=== PATIENT | female | born 1930 | race Caucasian/White ===

== ENCOUNTER → 2016-12-03 | Day surgery (SDC) | payer MEDICARE ==
[~2016-12-03] VITALS: Ht 165.1 cm; Wt 59.0 kg
[~2016-12-03] MED LIST: ASPI81CH CHEW; CALCTAB70 PO; CYCLOPENTOLATE HCL 1% OPHT SOLN 2 ML BTL ONE; FLURBIPROFEN 0.03% OPHT SOLN 2.5 ML BTL ONE; HYALURONIDASE/LIDOCAINE/EPINEPHRINE/BUPIVACAINE 6 ML SYR ONE; LIDOCAINE HCL 1% 30 ML VIAL ONE; MEVA40TA PO; PHENYLEPHRINE HCL 10% OPTH SOLN 5 ML BTL ONE; PROPARACAINE HCL 0.5% OPHT SOLN 15 ML BTL ONE; PROPOFOL 200 MG/20 ML AMP ONE; SODIUM CHLORID 0.9% 500 ML INJ 500 ML ONE; TOBRAMYCIN/DEXAMETHASONE OPTH OINT 3.5 GM TUBE ONE; TROPICAMIDE 1% OPHT SOLN 15 ML BTL ONE; VITA500C13
[2016-12-03 08:55] VITALS: BP 173/92; PULSE 65; RESP 16; TEMP 97.7; O2SAT 96
[2016-12-03 09:00] VITALS: PULSE 65
[2016-12-03 09:39] VITALS: PULSE 67
[2016-12-03 10:18] VITALS: TEMP 97.8
[2016-12-03 10:53] VITALS: BP 150/72; PULSE 65; RESP 14; O2SAT 100
--- NOTE | 2016-12-06 07:42 | MP ---
cc: CHANDRAKANT BETANCOURT M.D. [facility] #[id number] DATE OF SURGERY: 12/03/2016 PREOPERATIVE DIAGNOSIS: Visually significant cataract, right eye. POSTOPERATIVE DIAGNOSIS: Visually significant cataract, right eye. OPERATION: Phacoemulsification with posterior chamber lens implantation, right eye. SURGEON: Chandrakant Betancourt MD ANESTHESIA: Retrobulbar with MAC. COMPLICATIONS: None. PROCEDURE: After informed consent was obtained, the patient was brought into the operative suite and placed on appropriate monitors by the Anesthesia Service. The patient had received a prior retrobulbar injection of local anesthetic by the Anesthesia Service in the holding area. The patient's operative eye was then prepped and draped in the usual sterile fashion. A wire lid speculum was placed. A paracentesis incision was made in the peripheral cornea with a 1 mm jeannette keratome. The anterior chamber was filled with viscoelastic. The anterior chamber was then entered through a stepped, clear corneal incision using a sharp 3 mm jeannette keratome. A circular tear capsulorrhexis was then made with a bent needle cystitome. Following hydrodissection of the lens nucleus with balanced saline, phacoemulsification of the nucleus was performed using a modified chopping technique. The remaining cortex was removed with irrigation/aspiration. The prior two procedures were both performed using the handpieces of the [employer] phaco unit. The capsular bag was then filled with viscoelastic. The intraocular lens was then injected into the capsular bag and positioned. The type of intraocular lens and its power can be found elsewhere in this chart. The remaining viscoelastic was then removed from the anterior chamber with the IA handpiece. The anterior chamber was reformed with balanced saline. The wound was then closed securely with stromal hydration. It was found to be watertight to an intraocular pressure of at least 30 mmHg by palpation. A small amount of balanced salt solution was then removed through the paracentesis site and the intraocular pressure at the end of the case was approximately 20 by palpation. All drapes were then removed. TobraDex ointment was then placed in the eye, which was closed beneath a semi-pressure patch dressing. The patient tolerated this procedure well and left the operating room awake and alert. The patient is to follow-up in my office in the morning. ADDENDUM: Due to the patient's poorly dilating pupil, a Malyugin ring was used to promote and maintain pupillary mydriasis during phacoemulsification and lens implantation. MD RENUKA Wagner/TINA /10:28 AM /6:36 AM
== END | disposition home or self-care (01) ==
LOC: PHSDC 07:06
PROVIDERS: ATTEND Optometrist Occupational Vision
DX: H25.11 Age-related nuclear cataract, right eye (principal)
CPT/HCPCS: 00142; 66984; J7040; V2632

== ENCOUNTER 2017-05-12 16:58 | Emergency (ER) | payer MEDICARE ==
[~2017-05-12] VITALS: Ht 165.1 cm; Wt 63.0 kg
[~2017-05-12 16:58] MED LIST changes: -CYCLOPENTOLATE HCL 1% OPHT SOLN 2 ML BTL ONE; -FLURBIPROFEN 0.03% OPHT SOLN 2.5 ML BTL ONE; -HYALURONIDASE/LIDOCAINE/EPINEPHRINE/BUPIVACAINE 6 ML SYR ONE; -LIDOCAINE HCL 1% 30 ML VIAL ONE; -PHENYLEPHRINE HCL 10% OPTH SOLN 5 ML BTL ONE; -PROPARACAINE HCL 0.5% OPHT SOLN 15 ML BTL ONE; -PROPOFOL 200 MG/20 ML AMP ONE; -SODIUM CHLORID 0.9% 500 ML INJ 500 ML ONE; -TOBRAMYCIN/DEXAMETHASONE OPTH OINT 3.5 GM TUBE ONE; -TROPICAMIDE 1% OPHT SOLN 15 ML BTL ONE
[2017-05-12 17:06] VITALS: BP 158/77; PULSE 82; RESP 16; TEMP 98; O2SAT 94
--- NOTE | 2017-05-12 17:52 | PD ---
HPI Chief Complaint: Fall Time Seen by Provider: 17:38 Travel History International Travel<30 days: No Contact w/Intl Traveler<30days: No Traveled to known affect area: No History of Present Illness HPI 86-year-old female complains of headache, syncope. Patient states that she was in the kitchen this afternoon and passed out. Patient states that she fell backward hitting the back of her head. Patient was not sure of how long she was out. Patient complained of headache in the back of her head. Patient denies any visual change. Patient denies any neck pain. Patient denies any chest pain or shortness of breath. Patient denies abdominal pain. Patient denies any focal weakness or numbness of extremity. Patient denies any extremity injury. Patient denies any illicit drug or alcohol abuse. Patient on aspirin daily and medication for hyperlipidemia. Patient denies any history of cardiac arrhythmia, TIA or CVA. PFSH Past Medical History Cancer: No Cardiovascular Problems: No High Cholesterol: Yes Diabetes: No Diminished Hearing: No Endocrine: No Gastrointestinal Disorders: Yes (DIVERTICULOSIS, DYSPHAGIA) Hepatitis: No Hypertension: Yes Musculoskeletal: Yes (ARTHRITIS, KNEE PAIN) Neurologic: Yes (VERTIGO) Psychiatric: No Respiratory: No Thyroid Disease: No Influenza Vaccination: Yes ?: Not Menopausal: Yes Past Surgical History Abdominal Surgery: Yes (APPENDECTOMY) AICD: No Cardiac Surgery: No Ear Surgery: No Endocrine Surgery: No Eye Surgery: No Genitourinary Surgery: No Gynecologic Surgery: Yes (HYSTERECTOMY) Hysterectomy: Yes (20 years ago) Joint Replacement: No Oral Surgery: No Pacemaker: No Thoracic Surgery: No Other Surgery: Yes Social History Alcohol Use: No Tobacco Use: No Substance Use: No Allergies-Medications (Allergen,Severity, Reaction): Coded Allergies: No Known Allergies (Verified , 05/12/17) Reported Meds & Prescriptions Reported Meds & Active Scripts Active Reported Aspirin 81 Mg Chew 81 Mg CHEW DAILY Review of Systems General / Constitutional: No: Fever Eyes: No: Visual changes HENT: Positive: Headaches Cardiovascular: No: Chest Pain or Discomfort Respiratory: No: Shortness of Breath Gastrointestinal: No: Abdominal Pain Genitourinary: No: Dysuria Musculoskeletal: No: Pain Skin: No Rash Neurologic: Positive: Syncope, No: Weakness Psychiatric: No: Depression Endocrine: No: Polydipsia Hematologic/Lymphatic: No: Easy Bruising Physical Exam Narrative GENERAL: Well-nourished, well-developed patient. SKIN: Focused skin assessment warm/dry. HEAD: Normocephalic. Soft tissue swelling tenderness right occipital area of the scalp. EYES: No scleral icterus. No injection or drainage. Pupils pinpoint and reactive. NECK: Supple, trachea midline. No JVD or lymphadenopathy. CARDIOVASCULAR: Regular rate and rhythm without murmurs, gallops, or rubs. RESPIRATORY: Breath sounds equal bilaterally. No accessory muscle use. GASTROINTESTINAL: Abdomen soft, non-tender, nondistended. MUSCULOSKELETAL: No cyanosis, or edema. BACK: Nontender without obvious deformity. No CVA tenderness. Neurologic exam: Patient's awake and alert oriented 3. Patient moves all extremity well. No obvious focal neurological deficit. Data Data Last Documented VS Vital Signs Date Time Temp Pulse Resp B/P Pulse Ox O2 Delivery O2 Flow Rate FiO2 05/12/17 19:00 97.9 66 18 172/80 96 Room Air Orders Electrocardiogram (05/12/17 17:46) Complete Blood Count With Diff (05/12/17 17:46) Comprehensive Metabolic Panel (05/12/17 17:46) Prothrombin Time / Inr (Pt) (05/12/17 17:46) Act Partial Throm Time (Ptt) (05/12/17 17:46) Urinalysis - C+S If Indicated (05/12/17 17:46) Ct Brain W/O Iv Contrast(Rout) (05/12/17 17:46) Iv Access Insert/Monitor (05/12/17 17:46) Ecg Monitoring (05/12/17 17:46) Oximetry (05/12/17 17:46) Labs Laboratory Tests Test 05/12/17 17:51 White Blood Count 9.0 TH/MM3 Red Blood Count 4.39 MIL/MM3 Hemoglobin 13.6 GM/DL Hematocrit 40.9 % Mean Corpuscular Volume 93.2 FL Mean Corpuscular Hemoglobin 31.0 PG Mean Corpuscular Hemoglobin 33.3 % Concent Red Cell Distribution Width 13.7 % Platelet Count 252 TH/MM3 Mean Platelet Volume 7.6 FL Neutrophils (%) (Auto) 76.9 % Lymphocytes (%) (Auto) 15.0 % Monocytes (%) (Auto) 7.1 % Eosinophils (%) (Auto) 0.6 % Basophils (%) (Auto) 0.4 % Neutrophils # (Auto) 7.0 TH/MM3 Lymphocytes # (Auto) 1.3 TH/MM3 Monocytes # (Auto) 0.6 TH/MM3 Eosinophils # (Auto) 0.1 TH/MM3 Basophils # (Auto) 0.0 TH/MM3 CBC Comment DIFF FINAL Differential Comment Prothrombin Time 10.4 SEC Prothromb Time International 0.9 RATIO Ratio Activated Partial 26.6 SEC Thromboplast Time Sodium Level 138 MEQ/L Potassium Level 4.1 MEQ/L Chloride Level 104 MEQ/L Carbon Dioxide Level 29.1 MEQ/L Anion Gap 5 MEQ/L Blood Urea Nitrogen 19 MG/DL Creatinine 0.81 MG/DL Estimat Glomerular Filtration 67 ML/MIN Rate Random Glucose 106 MG/DL Calcium Level 8.6 MG/DL Total Bilirubin 0.4 MG/DL Aspartate Amino Transf 22 U/L (AST/SGOT) Alanine Aminotransferase 20 U/L (ALT/SGPT) Alkaline Phosphatase 86 U/L Total Protein 7.5 GM/DL Albumin 3.6 GM/DL MDM Medical Decision Making Medical Screen Exam Complete: Yes Emergency Medical Condition: Yes Interpretation(s) [address] scan of brain shows no acute pathology. CBC CMP within normal limit. Differential Diagnosis Differential diagnosis including syncope, contusion, concussion, skull fracture , intracranial hemorrhage, arrhythmia, electrolyte imbalance, TIA, CVA. Narrative Course 86-year-old female with head injury after a syncopal episode. Diagnosis Primary Impression: Closed head injury Qualified Code: S09.90XA - Closed head injury, initial encounter Patient Instructions: General Instructions Additional Instructions: Tylenol and Advil for pain. Head trauma instructions given. Follow-up with personal physician. Return as needed. Med/Other Pt SpecificInfo: No Change to Meds Disposition: 01 DISCHARGE HOME Condition: Stable Tacos Ragland MD May 12, 2017 17:52
[2017-05-12 17:56] VITALS: O2SAT 94
[2017-05-12 17:56] LABS: BASOPHIL % 0.4 % (0.0-2.0); EOSINOPHIL # 0.1 TH/MM3 (0-0.4); EOSINOPHIL % 0.6 % (0.0-4.0); HEMATOCRIT 40.9 % (35.0-46.0); LYMPHOCYTE # 1.3 TH/MM3 (1.0-4.8); MEAN CELL VOLUME 93.2 FL (80.0-100.0); MEAN CORPUSCULAR HGB CONC 33.3 % (32.0-36.0); MONO % 7.1 % (0.0-8.0); NEUT % 76.9 % (16.0-70.0); PLATELET COUNT 252 TH/MM3 (150-450); RED BLOOD COUNT 4.39 MIL/MM3 (4.00-5.30); RED CELL DISTRIBUTION WIDTH 13.7 % (11.6-17.2)
[2017-05-12 17:59] LABS: HEMO FLAGS DIFF FINAL
[2017-05-12 18:09] LABS: CHLORIDE 104 MEQ/L (98-107); POTASSIUM 4.1 MEQ/L (3.5-5.1); SODIUM (NA) 138 MEQ/L (136-145)
[2017-05-12 18:13] LABS: ANION GAP 5 MEQ/L (5-15); APTT (PATIENT) 26.6 SEC (24.3-30.1); BICARBONATE 29.1 MEQ/L (21.0-32.0); BLOOD UREA NITROGEN 19 MG/DL (7-18); INTERNATIONAL NORMALIZED RATIO 0.9 RATIO; PROTHROMBIN TIME - PATIENT 10.4 SEC (9.8-11.6)
[2017-05-12 18:16] LABS: ALT (GPT) 20 U/L (10-53); AST (GOT) 22 U/L (15-37); GLOMERULAR FILTRATION RATE 67 ML/MIN (>89)
[2017-05-12 18:17] LABS: TOTAL BILIRUBIN ADULT 0.4 MG/DL (0.2-1.0)
[2017-05-12 18:19] LABS: ALKALINE PHOSPHATASE 86 U/L (45-117)
[2017-05-12 19:00] VITALS: BP 172/80; PULSE 66; RESP 18; TEMP 97.9; O2SAT 96
--- NOTE | 2017-05-12 19:17 | RADRPT ---
EXAM DATE/TIME: 05/12/2017 18:25 CORRECTION Corrected on: May 12, 2017; [facility] COMPARISON: CT BRAIN W/O CONTRAST, November 11, 2014, 16:26. INDICATIONS : Trauma, fall. Dizziness. RADIATION DOSE: 61.18 CTDIvol (mGy) MEDICAL HISTORY : Hypertension. Vertigo. SURGICAL HISTORY : None. ENCOUNTER: Initial ACUITY: 1 day PAIN SCALE: 0/10 LOCATION: cranial TECHNIQUE: Multiple contiguous axial images were obtained of the head. Using automated exposure control and adj ustment of the mA and/or kV according to patient size, radiation dose was kept as low as reasonably a chievable to obtain optimal diagnostic quality images. DICOM format image data is available electro nically for review and comparison. FINDINGS: CEREBRUM: The ventricles and cortical sulci are mildly distended. There is mild decreased density in the cereb ral white matter. No evidence of midline shift, mass lesion, hemorrhage or acute infarction. No extr a-axial fluid collections are seen. POSTERIOR FOSSA: The cerebellum and brainstem are intact. The 4th ventricle is midline. The cerebellopontine angle i s unremarkable. EXTRACRANIAL: The visualized portion of the orbits is intact. There is focal soft tissue swelling in the right cintia etal scalp region. SKULL: The calvaria is intact. No evidence of skull fracture. CONCLUSION: 1. No acute intracranial abnormality. 2. Mild age-related atrophy and suspected small vessel ischemic change in the white matter. 3. Right parietal scalp swelling. Chadwick Cool MD on May 12, 2017 at 19:14 Board Certified Radiologist. This report was verified electronically. Chadwick Cool MD on May 12, 2017 at 19:18 Board Certified Radiologist. This report was verified electronically.
[2017-05-12 19:22] LABS: BLOOD, URINE NEG (NEG); GLUCOSE,URINE NEG (NEG); KETONE, URINE NEG (NEG); NITRITE,URINE NEG (NEG); PH, URINE 6.5 (5.0-8.5)
[2017-05-12 19:27] LABS: COMMENT (UR) CULT NOT INDICATED; CULTURE IF INDICATED CULT NOT INDICATED; RBC, URINE 0-2 /hpf (0-3); SQUAMOUS EPITHELIAL CELL URINE 0-5 /hpf (0-5); URINE COLOR YELLOW (YELLW/STRAW); WBC, URINE 0-2 /hpf (0-5)
--- NOTE | 2017-05-13 09:13 | EKG ---
Date Performed: 05/12/2017 Time Performed: 17:54:03 PTAGE: 86 years EKG: Sinus rhythm WITH SINUS ARRHYTHMIA POSSIBLE RIGHT VENTRICULAR CONDUCTION DELAY ST DEVIATION AND MODERATE T-WAVE A BNORMALITY, CONSIDER ANTEROLATERAL ISCHEMIA ABNORMAL ECG NO PREVIOUS TRACING DOCTOR: Ivan Juan Interpretating Date/Time 05/13/2017 09:03:57
== END 2017-05-12 19:56 | disposition home or self-care (01) ==
LOC: PHED 16:58
DX: S09.90XA Unspecified injury of head, initial encounter (principal); R55 Syncope and collapse; I10 Essential (primary) hypertension; E78.5 Hyperlipidemia, unspecified; R94.31 Abnormal electrocardiogram [ECG] [EKG]; Z79.82 Long term (current) use of aspirin; Z87.19 Personal history of other diseases of the digestive system; Z87.39 Personal history of other diseases of the musculoskeletal system and connective tissue; W18.39XA Other fall on same level, initial encounter; Y92.000 Kitchen of unspecified non-institutional (private) residence as the place of occurrence of the external cause
CPT/HCPCS: 70450; 80053; 81001; 85025; 85610; 85730; 93005; 99285

== ENCOUNTER 2017-08-12 10:21 | Observation (INO) | payer MEDICARE ==
[~2017-08-12] VITALS: Ht 165.1 cm; Wt 60.8 kg
[~2017-08-12 10:21] MED LIST changes: +ASPI-516 CHEW; -ASPI81CH CHEW; -CALCTAB70 PO; -MEVA40TA PO; -VITA500C13
[2017-08-12 10:34] VITALS: BP 127/65; PULSE 72; RESP 16; TEMP 98.1; O2SAT 97
[2017-08-12] MEDS ORDERED: SCOP1PAT6 (10:40)
[2017-08-12] MEDS ORDERED: TRIA0.022 TOPICAL (10:40)
[2017-08-12] MEDS ORDERED: LOVA20TA PO (10:40)
--- NOTE | 2017-08-12 11:13 | PD ---
HPI Chief Complaint: Neuro Symptoms/ Deficits Time Seen by Provider: 10:30 Travel History International Travel<30 days: No Contact w/Intl Traveler<30days: No Traveled to known affect area: No History of Present Illness HPI 86yo F presents to the ED with c/o change in mental status, speech for 2 days. States 2 days ago, daughter notice that when she starts speaking, she is unable to find her words and also had some slurred speech. Pt uses a walker but noticed that her gait has been more unsteady for 2 days. Pt fell and hit her head yesterday but did not seek any medical attention. Denies being on anticoagulation. Pt has vertigo and did start a patch recently but took the patch off and is still not back to baseline mental status as per daughter. Denies any fever, cough, chest pain, sob, n/v, abdominal pain, focal weakness or numbness or visual changes. PFSH Past Medical History Cancer: No Cardiovascular Problems: No High Cholesterol: Yes Diabetes: No Diminished Hearing: No Endocrine: No Gastrointestinal Disorders: Yes (DIVERTICULOSIS, DYSPHAGIA) Hepatitis: No Hypertension: Yes Musculoskeletal: Yes (ARTHRITIS, KNEE PAIN) Neurologic: Yes (VERTIGO) Psychiatric: No Respiratory: No Thyroid Disease: No Menopausal: Yes Past Surgical History Abdominal Surgery: Yes (APPENDECTOMY) AICD: No Cardiac Surgery: No Ear Surgery: No Endocrine Surgery: No Eye Surgery: No Genitourinary Surgery: No Gynecologic Surgery: Yes (HYSTERECTOMY) Hysterectomy: Yes (20 years ago) Joint Replacement: No Neurologic Surgery: No Oral Surgery: No Pacemaker: No Thoracic Surgery: No Other Surgery: Yes Social History Alcohol Use: No Tobacco Use: No Substance Use: No Allergies-Medications (Allergen,Severity, Reaction): Coded Allergies: No Known Allergies (Verified Allergy, Unknown, 08/12/17) Reported Meds & Prescriptions Reported Meds & Active Scripts Active Reported Triamcinolone Topical 0.025 % Oint 1 Applic TOPICAL BID Lovastatin 20 Mg Tab 20 Mg PO DAILY Scopolamine 1 Mg/3 Day Patch.td.3 Review of Systems Except as stated in HPI: all other systems reviewed are Neg Physical Exam Narrative GENERAL: 86yo F not in distress. SKIN: Focused skin assessment warm/dry. HEAD: Atraumatic. Normocephalic. EYES: Pupils equal and round at 3mm bilaterally. EOMI. ENT: No nasal bleeding or discharge. Mucous membranes pink and moist. NECK: Trachea midline. No JVD. CARDIOVASCULAR: Regular rate and rhythm. No murmur appreciated. RESPIRATORY: No accessory muscle use. Clear to auscultation. Breath sounds equal bilaterally. GASTROINTESTINAL: Abdomen soft, non-tender, nondistended. MUSCULOSKELETAL: No obvious deformities. No clubbing. No cyanosis. No edema. NEUROLOGICAL: Awake and alert. No obvious cranial nerve deficits. Motor grossly within normal limits. Normal speech. PSYCHIATRIC: Appropriate mood and affect; insight and judgment normal. Data Data Last Documented VS Vital Signs Date Time Temp Pulse Resp B/P (MAP) Pulse Ox O2 Delivery O2 Flow Rate FiO2 08/12/17 11:59 62 111/75 (87) 95 08/12/17 10:34 [address] Brain W/O Iv Contrast(Rout) (08/12/17 ) Complete Blood Count With Diff (08/12/17 10:43) Basic Metabolic Panel (Bmp) (08/12/17 10:43) Prothrombin Time / Inr (Pt) (08/12/17 10:43) Act Partial Throm Time (Ptt) (08/12/17 10:43) Ct Cerv Spine W/O Contrast (08/12/17 ) Urinalysis - C+S If Indicated (08/12/17 10:43) Electrocardiogram (08/12/17 ) Troponin I (08/12/17 10:54) Admit Order (Ed Use Only) (08/12/17 12:54) Labs Laboratory Tests Test 08/12/17 11:06 White Blood Count 6.4 TH/MM3 Red Blood Count 4.66 MIL/MM3 Hemoglobin 14.2 GM/DL Hematocrit 43.7 % Mean Corpuscular Volume 93.9 FL Mean Corpuscular Hemoglobin 30.5 PG Mean Corpuscular Hemoglobin Concent 32.5 % Red Cell Distribution Width 13.3 % Platelet Count 272 TH/MM3 Mean Platelet Volume 7.4 FL Neutrophils (%) (Auto) 59.9 % Lymphocytes (%) (Auto) 28.0 % Monocytes (%) (Auto) 9.1 % Eosinophils (%) (Auto) 2.0 % Basophils (%) (Auto) 1.0 % Neutrophils # (Auto) 3.8 TH/MM3 Lymphocytes # (Auto) 1.8 TH/MM3 Monocytes # (Auto) 0.6 TH/MM3 Eosinophils # (Auto) 0.1 TH/MM3 Basophils # (Auto) 0.1 TH/MM3 CBC Comment DIFF FINAL Differential Comment Prothrombin Time 10.2 SEC Prothromb Time International Ratio 0.9 RATIO Activated Partial Thromboplast Time 27.8 SEC Urine Collection Type CLEAN CATCH Urine Color YELLOW Urine Turbidity CLEAR Urine pH 6.0 Urine Specific [place] 1.010 Urine Protein NEG mg/dL Urine Glucose (UA) NEG mg/dL Urine Ketones NEG mg/dL Urine Occult Blood NEG Urine Nitrite NEG Urine Bilirubin NEG Urine Leukocyte Esterase NEG Urine RBC 0-3 /hpf Urine WBC 0-2 /hpf Urine Squamous Epithelial Cells 0-5 /hpf Microscopic Urinalysis Comment CULT NOT INDICATED Urine Collection Time 11:06 Blood Urea Nitrogen 23 MG/DL Creatinine 0.87 MG/DL Random Glucose 62 MG/DL Calcium Level 9.0 MG/DL Sodium Level 143 MEQ/L Potassium Level 4.1 MEQ/L Chloride Level 106 MEQ/L Carbon Dioxide Level 30.4 MEQ/L Anion Gap 7 MEQ/L Estimat Glomerular Filtration Rate 61 ML/MIN Troponin I LESS THAN 0.02 NG/ML MDM Medical Decision Making Medical Screen Exam Complete: Yes Emergency Medical Condition: Yes Interpretation(s) EKG: NSR 70bpm. Normal axis. TWI V3-V6. Differential Diagnosis TIA vs. dementia vs. delirium vs. UTI vs. medication effects Narrative Course 86yo F with symptoms concerning for TIA. Pt has difficulty speaking words and change in gait for 2 days. Fell yesterday. Labs reviewed, no leukocytosis. Troponin negative. Glucose low at 62 but the blood glucose was 136 then 87 when we checked it. Pt is awake and alert on exam. UA negative. CT brain showed soft tissue swelling. No acute abnormality. CT cspine showed no acute bony fracture. Discussed with Dr. Enamorado and accepted to her service. Diagnosis Primary Impression: TIA (transient ischemic attack) Qualified Codes: G45.9 - Transient cerebral ischemic attack, unspecified Admitting Information Admitting Physician Requests: Saloni Shah DO Aug 12, 2017 11:13
[2017-08-12 11:16] LABS: AUTOMATED NEUTROPHIL # 3.8 TH/MM3 (1.8-7.7); BASOPHIL # 0.1 TH/MM3 (0-0.2); EOSINOPHIL # 0.1 TH/MM3 (0-0.4); HEMATOCRIT 43.7 % (35.0-46.0); HEMO FLAGS DIFF FINAL; LYMPHOCYTE # 1.8 TH/MM3 (1.0-4.8); MEAN CELL VOLUME 93.9 FL (80.0-100.0); MEAN CORPUSCULAR HEMOGLOBIN 30.5 PG (27.0-34.0); MEAN CORPUSCULAR HGB CONC 32.5 % (32.0-36.0); MONO % 9.1 % (0.0-8.0); NEUT % 59.9 % (16.0-70.0); PLATELET COUNT 272 TH/MM3 (150-450); RED BLOOD COUNT 4.66 MIL/MM3 (4.00-5.30); RED CELL DISTRIBUTION WIDTH 13.3 % (11.6-17.2); WHITE BLOOD COUNT 6.4 TH/MM3 (4.0-11.0)
[2017-08-12 11:24] LABS: POTASSIUM 4.1 MEQ/L (3.5-5.1)
--- NOTE | 2017-08-12 11:24 | RADRPT ---
EXAM DATE/TIME: 08/12/2017 11:12 [facility] COMPARISON: CT BRAIN W/O CONTRAST, May 12, 2017, 18:25. INDICATIONS : Trauma. Fell 2 days ago. Dizziness. Memory loss. RADIATION DOSE: 59.78 CTDIvol (mGy) MEDICAL HISTORY : Hypertension. Vertigo. SURGICAL HISTORY : Hysterectomy. Appendectomy. ENCOUNTER: Initial ACUITY: 2 days PAIN SCALE: 0/10 LOCATION: cranial TECHNIQUE: Multiple contiguous axial images were obtained of the head. Using automated exposure control and adj ustment of the mA and/or kV according to patient size, radiation dose was kept as low as reasonably a chievable to obtain optimal diagnostic quality images. DICOM format image data is available electro nically for review and comparison. FINDINGS: CEREBRUM: The ventricles are normal for age. No evidence of midline shift, mass lesion, hemorrhage or acute in farction. No extra-axial fluid collections are seen. POSTERIOR FOSSA: The cerebellum and brainstem are intact. The 4th ventricle is midline. The cerebellopontine angle i s unremarkable. EXTRACRANIAL: The visualized portion of the orbits is intact. Left parietal soft tissue swelling near the vertex. SKULL: The calvaria is intact. No evidence of skull fracture. CONCLUSION: 1. Soft tissue swelling. 2. No acute intracranial abnormality. Tyshawn Mayes Jr., MD on August 12, 2017 at 11:21 Board Certified Radiologist. This report was verified electronically.
[2017-08-12 11:26] LABS: BLOOD, URINE NEG (NEG); GLUCOSE,URINE NEG (NEG); KETONE, URINE NEG (NEG); NITRITE,URINE NEG (NEG)
[2017-08-12 11:27] LABS: BICARBONATE 30.4 MEQ/L (21.0-32.0)
[2017-08-12 11:28] LABS: APTT (PATIENT) 27.8 SEC (24.3-30.1); INTERNATIONAL NORMALIZED RATIO 0.9 RATIO; PROTHROMBIN TIME - PATIENT 10.2 SEC (9.8-11.6)
[2017-08-12 11:32] LABS: COMMENT (UR) CULT NOT INDICATED; CULTURE IF INDICATED CULT NOT INDICATED; METHOD OF COLLECTION CLEAN CATCH; RBC, URINE 0-3 /hpf (0-3); SQUAMOUS EPITHELIAL CELL URINE 0-5 /hpf (0-5); URINE COLOR YELLOW (YELLW/STRAW); WBC, URINE 0-2 /hpf (0-5)
[2017-08-12 11:59] VITALS: BP 111/75; PULSE 62; O2SAT 95
--- NOTE | 2017-08-12 12:05 | RADRPT ---
EXAM DATE/TIME: 08/12/2017 11:12 [facility] COMPARISON: No previous studies available for comparison. INDICATIONS : Trauma. Fell 2 days ago. Dizziness. Memory loss. RADIATION DOSE: 25.33 CTDIvol (mGy) MEDICAL HISTORY : Hypertension. Vertigo. SURGICAL HISTORY : Appendectomy. Hysterectomy. ENCOUNTER: Initial ACUITY: 2 days PAIN SCALE: 0/10 LOCATION: neck TECHNIQUE: Volumetric scanning of the cervical spine was performed. Multiplanar reconstructions in the sagittal, coronal and oblique axial planes were performed. Using automated exposure control and adjustment o f the mA and/or kV according to patient size, radiation dose was kept as low as reasonably achievable to obtain optimal diagnostic quality images. DICOM format image data is available electronically f or review and comparison. FINDINGS: VERTEBRAE: Normal vertebral body height. There are primary degenerative changes involving the mid to lower cervi gallo spine from C3-C7. There is disc space narrowing from C3-C7. No acute bony fractures are demonstra kalee. ALIGNMENT: Minimal anterior spondylolisthesis of C3 over C4. C2-C3: The bony spinal canal is normal in size. No evidence of disc bulge or herniation. The neural forami na are bilaterally patent. C3-C4: The bony spinal canal is normal in size. No evidence of disc bulge or herniation. There is facet art hritis on the right side with mild narrowing of the right neural foramina. The left neural foramina i s patent. C4-C5: The bony spinal canal is normal in size. No evidence of disc bulge or herniation. The neural forami na are bilaterally patent. Bilateral facet arthritis, right greater than left. C5-C6: Small left paracentral disc osteophyte complex. Mild narrowing of the left neural foramina. Right brittney ral foramina is patent. C6-C7: Mild broad-based bulging. Mild narrowing of the left neural foramina. Right neural foramen is patent. C7-T1: The bony spinal canal is normal in size. No evidence of disc bulge or herniation. The neural forami na are bilaterally patent. CONCLUSION: 1. No acute bony fracture. 2. There is primary bony degenerative changes, disc degeneration and disc space narrowing involving t he mid to lower cervical spine. 3. Minimal anterior subluxation of C3 over C4. Valentino Wilson MD on August 12, 2017 at 12:00 Board Certified Radiologist. This report was verified electronically.
[2017-08-12] MEDS ORDERED: SODIUM CHLORIDE 0.9% FLUSH 5 ML FLUSH IV FLUSH PRN (13:30)
[2017-08-12] MEDS ORDERED: ENALAPRILAT 1.25 MG/ML VIAL IV PUSH PRN (13:30)
[2017-08-12 15:00] VITALS: BP 144/66; PULSE 60; RESP 18; TEMP 98; O2SAT 95
--- NOTE | 2017-08-12 16:22 | RADRPT ---
EXAM DATE/TIME: 08/12/2017 14:08 [facility] COMPARISON: No previous studies available for comparison. INDICATIONS : Cerebrovascular accident. MEDICAL HISTORY : Hypercholesterolemia. Hypertension. Vertigo. Diverticulosis. Dysphagia. Arthritis. Hyperlipidemia. SURGICAL HISTORY : Appendectomy. Hysterectomy. ENCOUNTER: Initial ACUITY: 1 day PAIN SCORE: 0/10 LOCATION: Bilateral neck PEAK SYSTOLIC VELOCITIES (cm/sec): ICA/CCA RATIO: Right: 1.4 Left: 1.7 ICA: Right: 110 Left: 103 CCA: Right: 78 Left: 59 ECA: Right: 69 Left: 68 VERTEBRAL: Right: 36 antegrade Left: 61 antegrade Elevated flow velocities and ICA/CCA ratios have been found to correlate with increased degrees of vessel stenosis, calculated as percentage of diameter relative to a normal segment of distal ICA/CCA FINDINGS: RIGHT CAROTID: No significant stenosis is visualized. The waveforms are within normal limits. LEFT CAROTID: No significant stenosis is visualized. The waveforms are within normal limits. VERTEBRAL ARTERIES: Antegrade flow is seen in both vertebral arteries. MISCELLANEOUS: None. CONCLUSION: Negative exam. No significant atherosclerotic calcification. No sonographic or Doppler findings of a hemodynamically significant stenosis. Antegrade flow in both vertebral arteries. Brian Echavarria MD on August 12, 2017 at 16:20 Board Certified Radiologist. This report was verified electronically.
--- NOTE | 2017-08-12 19:25 | MH ---
cc: VIKY HINSON M.D. DATE OF ADMISSION 08/12/2017 ADMISSION DIAGNOSIS Confusion, altered mental status. HISTORY OF PRESENT ILLNESS Ms. Hagen is a very pleasant 86-year-old female who states she was in her usual state of health which includes issues of chronic vertigo. Earlier on Wednesday, she put on a scopolamine patch as she has been told in the past that this might assist with her vertigo. Her daughter who was in town with her noticed that on Wednesday and Wednesday she seemed to become progressively more confused, had difficulty pronouncing words and finding words to complete sentences. She also appeared to be seeing family members who had . Her daughter called her primary care doctor's office, Dr. Dunham and the nurse recommended she come to the emergency room to be evaluated. The daughter who is in the room with her at this point actually states that they had taken the scopolamine patch off of her earlier and she notices that there has been a steady improvement in her mentation. Of note, the patient did sustain a fall. Yesterday as she was going down a hallway she was not using her walker or her cane at the time which she normally uses. She states that she just went down. She is not able to tell me if she had any loss of consciousness. Apparently, these falls have been fairly regular for her over the last couple of years. However, the daughter does report an increase in frequency. The patient states that she sometimes will feel that her leg deonna up. She is not able to tell me if she has ever lost consciousness when she has these falls or they are associated to her episodes of vertigo. According to the daughter, she does have a Life Alert and usually when she is contacted with the fall she is responsive, able to respond quickly. PAST MEDICAL HISTORY 1. Hyperlipidemia 2. Vertigo. She has been to [facility] and multiple places for evaluation of her vertigo. Currently she has been seeing Dada Ferreira. PAST SURGICAL HISTORY 1. Bilateral cataract surgery, 2. Appendectomy 3. Hysterectomy. ALLERGIES Denies. MEDICATIONS 1. Baby aspirin. 2. Lovastatin. She has not of the dose. HABITS She does not consume alcohol nor smoke. SOCIAL HISTORY She lives alone. She is independent of activities of daily living. She uses a walker and the cane. She has two daughters. One of them who is currently in the room with her and arrived on Wednesday will be here with her until December. She is currently retired. Her was a leather novelty parts cutter and four years ago. 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 REVIEW OF SYSTEMS She denies any chest pain, shortness of breath, palpitations. No abdominal pain, constipation, difficulty with her urine or bowels. PHYSICAL EXAMINATION VITAL SIGNS: Temperature is 98, pulse of 60, respirations 18, blood pressure 144/66, pulse ox is 95% on room air. Pulse ox is 95% on room air. GENERAL: She is sitting up in the hospital bed. She is with the daughter by her side. She is awake, alert and very pleasant and conversant. HEENT: She is normocephalic and atraumatic. EOMs intact. She is wearing her glasses. She has a clear moist oral mucosa. NECK: Supple. LUNGS: I hear no bruits. LUNGS: Clear to auscultation bilaterally. HEART: Regular rate and rhythm. I hear no ectopy or murmur. ABDOMEN: Good bowel sounds in all four quadrants. No rebound or guarding. EXTREMITIES: No clubbing, cyanosis or edema. LABORATORY DATA Lab work that was done when she came in showed a white count of 6.4, hemoglobin of 14.2, hematocrit of 43.7, platelet count of 272. Sodium was 143, potassium 4.1, BUN 23, creatinine 0.87, random glucose was 62, calcium was nine. Troponin was less than 0.02. Her urine was clear. IMAGING STUDIES CT scan of the brain that was done showed soft tissue swelling but no acute intracranial abnormality. They did do a CT scan of the cervical spine as well secondary to her fall. This showed no acute bony fractures or primary bony degenerative changes and minimal anterior subluxation of C3 over C4. ASSESSMENT/PLAN An 86-year-old female brought to the emergency room by her daughter secondary to questionable altered mental status. At this point, the daughter says she is getting closer and closer to baseline. It certainly sounds like this very possibly may have been a side effect of scopolamine. However, at this point we are going to go ahead and continue her evaluation for the transient ischemic attack. Her speech is still a little bit hesitant and she did exhibit some difficulty with word finding while we were talking. It is not clear whether or not these falls are from syncopal episodes and since they are increasing in frequency, I do think it merits getting a 2-D echocardiogram that has been ordered. Otherwise, we will continue her blood work for her. We will continue her on her Lovastatin and if her evaluation continues to do well between today and tomorrow, I do anticipate probably discharging her by tomorrow afternoon. MD ERIK Tong/ /6:56 PM /7:11 PM
[2017-08-12 20:00] VITALS: BP 121/71; PULSE 63; RESP 20; TEMP 98.3; O2SAT 95
[2017-08-12] MEDS: SODIUM CHLORIDE 0.9% FLUSH 5 ML FLUSH IV FLUSH SCH (21:00)
[2017-08-12 22:24] LABS: HEMOGLOBIN A1a 0.8 %; HEMOGLOBIN A1b 1.8 %; HEMOGLOBIN Ao 85.1 %; HEMOGLOBIN LA1C 1.8 %; HEMOGLOBIN P3 5.2 %
[2017-08-13] VITALS: BP 144/70; PULSE 65; RESP 16; TEMP 97.6; O2SAT 97
[2017-08-13 04:00] VITALS: BP 110/75; PULSE 63; RESP 16; TEMP 96.8; O2SAT 97
[2017-08-13] MEDS ORDERED: PRAVASTATIN SOD 20 MG TAB PO SCH (09:00)
[2017-08-13] MEDS ORDERED: FLUOCINOLONE ACETONIDE 0.01% CR 15 GM TUBE TOPICAL SCH (09:00)
[2017-08-13] MEDS: SODIUM CHLORIDE 0.9% FLUSH 5 ML FLUSH IV FLUSH SCH (09:00)
--- NOTE | 2017-08-13 09:07 | ECHRPT ---
Indication: CVA/TIA CONCLUSIONS Normal left ventricular size and wall thickness. The left ventricular systolic function is normal wi th an estimated ejection fraction in the range of 65-75%. Normal wall motion. There is trace tricuspid valve regurgitation. The estimated pulmonary arterial pressure is 35 mmHg. BP: 111 / 75 HR: 62 Rhythm: Sinus MEASUREMENTS (Male / Female) Normal Values Technical Quality:Fair 2D ECHO LV Diastolic Diameter PLAX 4.1 cm 4.2 - 5.9 / 3.9 - 5.3 cm LV Systolic Diameter PLAX 2.4 cm IVS Diastolic Thickness 0.7 cm 0.6 - 1.0 / 0.6 - 0.9 cm LVPW Diastolic Thickness 0.7 cm 0.6 - 1.0 / 0.6 - 0.9 cm LV Relative Wall Thickness 0.4 LVOT Diameter 2.1 cm Aortic Root Diameter 2.8 cm LA Systolic Diameter LX 2.6 cm 3.0 - 4.0 / 2.7 - 3.8 cm M-MODE AV Cusp Separation MM 1.8 cm DOPPLER AV Peak Velocity 130.0 cm/s AV Peak Gradient 6.8 mmHg AV Mean Gradient 3.0 mmHg AV Velocity Time Integral 27.7 cm LVOT Peak Velocity 75.9 cm/s LVOT Peak Gradient 2.3 mmHg LVOT Velocity Time Integral 17.7 cm AV Area Cont Eq vti 2.2 cm AV Area Cont Eq pk 2.0 cm LV E' Lateral Velocity 5.4 cm/s LV E' Septal Velocity 6.2 cm/s TR Peak Velocity 252.0 cm/s TR Peak Gradient 25.4 mmHg Right Atrial Pressure 10.0 mmHg Pulmonary Artery Systolic Pressu 35.4 mmHg Right Ventricular Systolic Press 35.4 mmHg PV Peak Velocity 63.9 cm/s PV Peak Gradient 1.6 mmHg FINDINGS LEFT VENTRICLE Normal left ventricular size and wall thickness. The left ventricular systolic function is normal wi th an estimated ejection fraction in the range of 65-75%. Normal wall motion. RIGHT VENTRICLE Normal right ventricular size and systolic function. LEFT ATRIUM The left atrial size is normal. RIGHT ATRIUM The right atrial size is normal. ATRIAL SEPTUM Normal atrial septal thickness without atrial level shunting by limited color doppler interrogation. AORTA The aortic root and proximal ascending aorta are normal in size on limited imaging. MITRAL VALVE Trace mitral valve regurgitation. AORTIC VALVE Trileaflet aortic valve. No aortic valve stenosis or regurgitation. TRICUSPID VALVE There is trace tricuspid valve regurgitation. The estimated pulmonary arterial pressure is 35 mmHg. PULMONARY VALVE No pulmonary valve regurgitation or stenosis. VESSELS The inferior vena cava is normal in size. PERICARDIUM No pericardial effusion. Heber Salinas MD (Electronically Signed) Final Date:13 August 2017 09:06
[2017-08-13 09:17] VITALS: BP 142/82; PULSE 64; RESP 18; TEMP 96.1; O2SAT 96
[2017-08-13 09:33] LABS: HDL CHOLESTEROL 66.8 MG/DL (40.0-60.0)
--- NOTE | 2017-08-13 14:06 | RADRPT ---
EXAM DATE/TIME: 08/13/2017 13:02 [facility] COMPARISON: CT BRAIN W/O CONTRAST, August 12, 2017, 11:12. INDICATIONS : CVA. Altered mental status. Status post recent trauma with memory loss. MEDICAL HISTORY : Hypercholesterolemia. SURGICAL HISTORY : Appendectomy. Hysterectomy. ENCOUNTER: Initial ACUITY: 2 day PAIN SCORE: 0/10 LOCATION: head TECHNIQUE: Multiplanar, multisequence MRI of the brain was performed without contrast. FINDINGS: CEREBRUM: The ventricles are normal for age. No evidence of midline shift, mass lesion, hemorrhage or acute in farction. No extraaxial fluid collections are seen. The pituitary gland and suprasellar cistern are normal in configuration. WHITE MATTER: On the flair weighted images there is increased signal in the centrum semiovale periventricular white matter consistent with chronic small vessel ischemic change. POSTERIOR FOSSA: The cerebellum and brainstem are intact. The 4th ventricle is midline. The cerebellopontine angle is unremarkable. The cerebellar tonsils are normal in position. DIFFUSION IMAGING: No focal areas of restricted diffusion are seen. No evidence of acute infarction. EXTRACRANIAL: The visualized portions of the orbits and paranasal sinuses are unremarkable. There is soft tissue sw elling over the high left occipital bone. CONCLUSION: 1. Soft tissue swelling over the high left occipital bone with no evidence of hemorrhage or mass effe ct. 2. Atrophy and chronic small vessel ischemic change. Chronic small less in number but yet Mack Saez MD on August 13, 2017 at 14:01 Board Certified Radiologist. This report was verified electronically.
[2017-08-13 14:27] VITALS: BP 111/70; PULSE 72; RESP 18; TEMP 96.5; O2SAT 96
--- NOTE | 2017-08-13 14:42 | RADRPT ---
EXAM DATE/TIME: 08/13/2017 13:50 [facility] COMPARISON: MRI BRAIN W/O CONTRAST, August 13, 2017, 13:02. INDICATIONS : Altered mental status. CVA. MEDICAL HISTORY : Hypercholesterolemia. SURGICAL HISTORY : Appendectomy. Hysterectomy. ENCOUNTER: Initial ACUITY: 2 day PAIN SCORE: 0/10 LOCATION: Head Please note a normal MRA of the brain does not entirely exclude the possibility of a small aneurysm, nor the possibility of distal intracranial vessel disease. TECHNIQUE: 3D time of flight MRA was performed. Source images, multiplanar STS MIP, and 3D volume MIP reconstru ctions were reviewed. FINDINGS: Both distal internal carotids are patent. The anterior and middle cerebral circulation is normal in a ppearance. The vertebrals are patent. The basilar is patent. The posterior cerebrals are widely paten t. CONCLUSION: 1. Negative examination. Paul Castillo MD on August 13, 2017 at 14:38 Board Certified Radiologist. This report was verified electronically.
[2017-08-13 16:00] VITALS: BP 142/70; PULSE 74; RESP 18; TEMP 98.3; O2SAT 94
--- NOTE | 2017-08-13 16:34 | EKG ---
Date Performed: 08/12/2017 Time Performed: 10:51:58 PTAGE: 86 years EKG: Sinus rhythm WITH MARKED SINUS ARRHYTHMIA POSSIBLE RIGHT VENTRICULAR CONDUCTION DELAY ST DEVIATION AND MODERATE T -WAVE ABNORMALITY, CONSIDER ANTEROLATERAL ISCHEMIA ABNORMAL ECG Since PREVIOUS TRACING , no significant change noted PREVIOUS TRACIN05/12/2017 17.54 DOCTOR: Dion Manning Interpretating Date/Time 08/13/2017 16:32:09
--- NOTE | 2017-08-13 17:01 | HHI.PR ---
Subjective Remarks Eager to go home, ambulating with walker, daughter feels she is closer to baseline Objective Vitals Vital Signs Date Time Temp Pulse Resp B/P (MAP) Pulse Ox O2 Delivery O2 Flow Rate FiO2 08/13/17 14:27 96.5 72 18 111/70 (84) 96 08/13/17 09:17 96.1 64 18 142/82 (102) 96 08/13/17 04:00 96.8 63 16 110/75 (87) 97 08/13/17 00:00 97.6 65 16 144/70 (94) 97 08/12/17 20:00 98.3 63 20 121/71 (88) 95 08/13/17 08/13/17 08/14/17 15:00 23:00 07:00 Intake Total 650 ml Balance 650 ml Intake Oral 650 ml # Voids 3 Result Diagram: 08/12/17 1106 08/12/17 1106 Imaging Last Impressions Head Magnetic Resonance Angiography 08/13/17 0000 Signed Impressions: Service Date/Time: Sunday, August 13, 2017 13:50 - CONCLUSION: 1. Negative examination. Paul Castillo MD Brain MRI 08/13/17 0000 Signed Impressions: Service Date/Time: Sunday, August 13, 2017 13:02 - CONCLUSION: 1. Soft tissue swelling over the high left occipital bone with no evidence of hemorrhage or mass effect. 2. Atrophy and chronic small vessel ischemic change. Chronic small less in number but yet Mack Saez MD Head CT 08/12/17 0000 Signed Impressions: Service Date/Time: July 11:12 - CONCLUSION: 1. Soft tissue swelling. 2. No acute intracranial abnormality. Tyshawn Mayes Jr., MD Cervical Spine CT 08/12/17 0000 Signed Impressions: Service Date/Time: July 11:12 - CONCLUSION: 1. No acute bony fracture. 2. There is primary bony degenerative changes, disc degeneration and disc space narrowing involving the mid to lower cervical spine. 3. Minimal anterior subluxation of C3 over C4. Valentino Wilson MD Carotid Artery Ultrasound 08/12/17 0000 Signed Impressions: Service Date/Time: July 14:08 - CONCLUSION: Negative exam. No significant atherosclerotic calcification. No sonographic or Doppler findings of a hemodynamically significant stenosis. Antegrade flow in both vertebral arteries. Brian Echavarria MD Objective Remarks Sitting up in bed good spirits cta rrr good bs no c/c/e A/P Problem List: (1) Medication reaction ICD Codes: T88.7XXA - Unspecified adverse effect of drug or medicament, initial encounter Status: Acute Plan: patient admitted for AMS confusion and difficulty with speech after placement of scopalamine patch. Work up for TIA done with nothing acute on studies except for some soft tissue swelling in her occipital region where she fell. I highly suspect that she had a reaction to the scopalamine patch rather then a true TIA. Patient and daughter know to not use this medication again for her chronic vertigo. Assessment and Plan discharge home today Cathy Mills MD Aug 13, 2017 17:01
== END 2017-08-13 17:07 | disposition home or self-care (01) ==
LOC: PHED 10:21 → PHEDA 12:54 → PH3A 14:44
PROVIDERS: ADMIT Legal Medicine; ATTEND Legal Medicine
DX: R41.0 Disorientation, unspecified (principal); R47.81 Slurred speech; W19.XXXA Unspecified fall, initial encounter; R42 Dizziness and giddiness; R13.10 Dysphagia, unspecified; K57.90 Diverticulosis of intestine, part unspecified, without perforation or abscess without bleeding; I10 Essential (primary) hypertension; E78.5 Hyperlipidemia, unspecified; R94.31 Abnormal electrocardiogram [ECG] [EKG]; Z79.82 Long term (current) use of aspirin; R79.1 Abnormal coagulation profile; R79.89 Other specified abnormal findings of blood chemistry; R55 Syncope and collapse
CPT/HCPCS: 70450; 70544; 70551; 72125; 80048; 80061; 81001; 83036; 84484; 85025; 85610; 85730; 93005; 93306; 93880; 96125; 97110; 97116; 97162; 97165; 97532; G8987; G8988; G8989; G9168; G9169; G9170; G0378